=== PATIENT | male | born 1930 | race Caucasian/White ===

== ENCOUNTER 2016-11-15 00:53 | Emergency (ER) | payer MEDICARE ==
[~2016-11-15] VITALS: Ht 170.2 cm; Wt 88.7 kg
[2016-11-15 00:53] VITALS: Ht 170.2 cm; Wt 88.7 kg
[~2016-11-15 00:53] MED LIST: OMEP20TA2 PO; TAMS-1 PO; TRAM50TA53 PO
--- NOTE | 2016-11-15 00:55 | NUR ---
PROVIDER DR JADE IN ROOM TO SEE PT. ADULT SON ALSO IN ROOM
--- OUTSIDE RECORDS SUMMARY | 2016-11-15 00:58 | XMS REPORT | Continuity of Care Document ---
Author Author [facility] Organization [facility] Address Unknown Phone Unavailable Support Name Relationship Address Phone ISAIAH ANDERSON FACS, MD Caregiver [address] [place] [address] [place] [address] Unavailable RITA FELICIANO MD Caregiver [address] [place] [address] [place] [address] Unavailable SAGRARIO OLIVAS Next Of Kin [address] [place] [id number] Insurance Providers Guarantor Jolly Kim Address [address] [place] [address] Email [email or web address] Payer Medicare Policy Number [id number] Subscriber's Name Jolly Kim Relationship 16 Self Advance Directives Directive Response Recorded Date/Time Ordered Resuscitation Status Full Code 05/02/16 3:41pm Resuscitation Documents on File No 05/03/16 10:15am DPOA for Healthcare Only Yes 05/03/16 10:15am Living Will Yes 05/03/16 10:15am Problems No problem information available. Medications Current Home Medications Medication Dose Units Route Directions Days Qty Instructions Start Date Omeprazole Magnesium (Prilosec Otc) 20 Mg Tablet.dr Santamaria Tab Oral Bedtime for Acid Reflux 05/02/16 Tamsulosin Hcl (Flomax) 0.4 Mg Capsule 0.4 Mg Oral Bedtime Take 1 capsule, by mouth, one time a day at BEDTIME. 05/02/16 Tramadol Hcl (Ultram) 50 Mg Tablet 50 Mg Oral Every 4 Hours for Pain 20 Tablet Take 1 tablet, by mouth, every 4 hours. 05/03/16 Social History Social History Problem Response Recorded Date/Time Onset Date Status Reason for Hospitalization EXCISIONAL BIOPSIES OF PERINEAL SUBCUTANOUS MASSES 05/03/2016 1:37pm Not Applicable Not Applicable Chewing Tobacco Status No 05/03/2016 10:12am Not Applicable Not Applicable Hx Substance Use No 05/03/2016 10:12am Not Applicable Not Applicable Hx Alcohol Use No 05/03/2016 10:12am Not Applicable Not Applicable Has the pt used tobacco in the last 12 months No 05/03/2016 10:12am Not Applicable Not Applicable Query Response Start Date Stop Date Smoking Status Never smoker Hospital Discharge Instructions Instructions: Care Instructions: I was in the hospital because (patient own words): HAVE LESIONS REMOVED FROM BUTTOCK AND LEG Discharge Diet: regular Discharge Activity: as tolerated Follow Up Appointments: Follow up with Promise Torres APRN/Dr. Anderson May 15 Pending Lab / Results: Will be notified Expected Signs/Symptoms: tenderness at incision sites, bruising Notify Physician If: 1. Call your surgeon if you are having problems relating to your surgery at [phone]. 2. Problems such as: Temp above 101.5 degrees You develop redness, excessive swelling of the incision, increasing pain or excessive foul smelling drainage. 3. If the office is closed, call [facility] at [phone] and have your Surgeon paged. During Business Hours:: Call your surgeon at at [phone]. After Business Hours:: If the office is closed, call [facility] at [phone] and have your Surgeon paged. Pain Management/Treatment: Follow prescriptions as prescribed Wound/Incision Care: Change dressing as needed. Do not let a wet dressing remain on the incision. Antibiotic ointment to incisions daily. May shower tomorrow, no bath. Condition at time of discharge: Good Plan of Care Discharge Date 05/03/16 2:22pm Instructions/Education Provided [facility] Prescriptions See Medication Section Functional Status Query Response Date Recorded Ability to complete ADL's impeded by No change May 03, 2016 10:15am Allergies, Adverse Reactions, Alerts No known allergies. Immunizations Query Response on File Recorded Date/Time Hx Influenza Vaccination Y MAY 2015 05/03/16 10:12am Hx Pneumococcal Vaccination Yes 05/03/16 10:12am Hx Influenza Vaccination Y MAY 2015 05/03/16 10:12am Vital Signs Acute Vital Signs Vital Response Date/Time Temperature (Fahrenheit) 98.7 deg F (96.8 - 99.1) 05/03/2016 1:09pm Temperature (Calculated Celsius) 37.09520 degrees C (36.0 - 37.3) 05/03/2016 1:09pm Temperature Source Temporal 05/03/2016 1:09pm Pulse Rate (adult) 62 bpm (60 - 100) 05/03/2016 2:20pm Respiratory Rate 20 breaths/min (10 - 20) 05/03/2016 2:20pm O2 Sat by Pulse Oximetry 97 % (90 - 100) 05/03/2016 2:20pm Oxygen Delivery Method Room Air 05/03/2016 2:20pm Blood Pressure 153/67 mm Hg 05/03/2016 2:20pm Blood Pressure Source Automatic Cuff 05/03/2016 2:20pm Height (Feet) 5 feet 05/03/2016 9:40am Height (Inches) 7.00 inches 05/03/2016 9:40am Weight (Kilograms) 87.600 kg 05/03/2016 9:40am Body Mass Index (BMI) 30.3 05/03/2016 9:40am Results No known relevant diagnostic tests, laboratory data and/or discharge summary. Procedures No known history of procedures. Encounters Encounter Location Arrival/Admit Date Discharge/Depart Date Attending Provider Registered [facility] 05/03/16 9:26am ISAIAH ANDERSON FACS, MD
[2016-11-15] MEDS ORDERED: LIDOCAINE JELLY 2% 20ml UROJET MM ONE (01:00)
--- NOTE | 2016-11-15 01:00 | ERPDOC ---
Departure Disposition Decision Date: November 15, 2016 Disposition Decision Time: :16 Disposition: 01 DISCHARGED HOME, SELF-CARE Impression Impression Impression: Primary Impression: Urinary retention Additional Impression: Constipation Constipation type: outlet dysfunction constipation Qualified Codes: K59.02 - Outlet dysfunction constipation Severity: Severe Condition: Improved Seen By: Physician only Referrals: RITA FELICIANO MD (Family) Patient Instructions: Constipation (ED), Malone Catheter Placement and Care (ED) , Urinary Retention in Men (ED) Problems/Meds/Labs Reviewed?: Yes Medications reviewed and manag: Yes Additional Instructions: Call your doctor first thing in the morning to arrange appointment for later today or tomorrow for recheck. Follow up care ordered?: Yes Mental Status: Alert HPI - Male General Stated Complaint: URINATION PROBLEMS Time Seen by Provider: 00:58 Source: patient Exam Limitations: no limitations HPI - Male Initial Comments Patient became constipated today after a long car ride. He tried taking some relax at home without effect, and then tried manual disimpaction which was somewhat effective. However when the patient was on the stool later in the evening, he noticed that he was having severe difficulty urinating, and in fact could not urinate at all. Taking the relax, it appeared that he had produced significant amounts of urine, but was unable to void. Patient does have BPH, that is normally controlled with Flomax. Occurred At: home Onset: Rapid Duration: 12-24 hrs Allergies: Coded Allergies: No Known Allergies (Unverified , 05/02/16) Past History Past Medical History GI: GERD Male: BPH Surgical History General: colonoscopy Vaccines Hx Influenza Vaccination: Yes (MAY 2015) Hx Pneumococcal Vaccination: Yes Social History Smoking Status: Never smoker Does patient use chewing tobac: No Second Hand Exposure: No Substance Use Type: does not use Record Review Pertinent history updated: Yes Physical Exam General Vitals and Pain First Documented Vital Signs Date Time Temp Pulse Resp B/P Pulse Ox O2 Delivery O2 Flow Rate FiO2 11/15/16 00:53 97.6 86 20 226/99 97 Room Air Weight: Kilograms: Height (feet): 5 Height (inches): 7.00 Triage Pain Scale: Progress Results/Orders Orders Procedure Category Date Status Time Malone (Ed) EDM 11/15/16 Transmitted 01:00 Catheter Needs BRENT 11/15/16 In Process Assessment 01:00 Bladder Scanner (Ed) EDM 11/15/16 Transmitted 01:00 Lidocaine Urojet PHA 11/15/16 Complete (Urojet) 01:00 Bisacodyl Supp. PHA 11/15/16 Complete (Dulcolax) 01:15 Magnesium Citrate PHA 11/15/16 Complete (Citrate Of Magnesia) 01:15 UA, LAB 11/15/16 Complete Dip&Micro(Complete) & 01:23 Lab Results Laboratory Tests Test 11/15/16 01:23 Urine Collection Type Straight cath Urine Color Yellow Urine Turbidity Clear Urine pH 6.5 Urine Specific [place] 1.015 Urine Protein Negative Urine Glucose (UA) Trace Urine Ketones Negative Urine Blood 2+ Urine Nitrite Negative Urine Bilirubin Negative Urine Urobilinogen 0.2EU/DL Urine Leukocyte Esterase Negative Urine RBC 5-10/HPF Urine WBC None seen/HPF Urine Bacteria None seen Urine Culture Indicated Cult not indicated Medications Current ED Medications Lidocaine HCl (Urojet) 20 ml O ONCE MM ; Start 11/15/16 at 01:00; Stop 11/15/16 at 01:02; Status DC Bisacodyl (Dulcolax) 10 mg O ONCE RECTALLY Last administered on 11/15/16 01:30 ; Start 11/15/16 at 01:15; Stop 11/15/16 at 01:16; Status DC Magnesium Citrate (Citrate Of Magnesia) 296 ml O ONCE PO Last administered on 11/15/16 01:50; Start 11/15/16 at 01:15; Stop 11/15/16 at 01:16; Status DC Progress Progress Urinalysis after Malone catheter placement and complete evacuation of the bladder shows only small amount of red blood cells. Patient was given Dulcolax suppository and magnesium citrate liquid to help mobilize stool, and dismissed home with Malone catheter in place. MADISON JADE MD November 15, 2016 01:00
[2016-11-15] MEDS ORDERED: BISACODYL 10 MG SUPPOSITORY RECTALLY ONE (01:15)
[2016-11-15] MEDS ORDERED: MAGNESIUM CITRATE 296 ML SOLUTION PO ONE (01:15)
--- NOTE | 2016-11-15 01:23 | NUR ---
UA COLLECTED VIA VAZQUEZ CATH W/ APPROX 800 CC URINE OUTPUT.
--- NOTE | 2016-11-15 01:30 | NUR ---
RECTAL DUCOLAX SUPPOSITORY GIVEN CHARTED.
--- NOTE | 2016-11-15 01:50 | NUR ---
PO MEDS MAGNESIUM CITRATE CHARTED W/ PT TOLERANCE.
[2016-11-15 02:07] LABS: BLOOD, URINE 2+ (NEGATIVE); COLOR,URINE YELLOW (YELLOW); LEUKOCYTE ESTERASE ,URINE NEGATIVE (NEGATIVE); NITRITE,URINE NEGATIVE (NEGATIVE); UROBILINOGEN,URINE 0.2 EU/DL (NORMAL)
[2016-11-15 02:13] LABS: BACTERIA,URINE NONE SEEN (NEGATIVE); WBC,URINE NONE SEEN /HPF (0-5)
[2016-11-15 02:31] VITALS: BP 159/77; PULSE 83; RESP 20; TEMP 97.2; O2SAT 97
--- NOTE | 2016-11-15 02:31 | NUR ---
DISCHARGE PT GIVEN INSTRUCTIONS FOR CONT CARE OF URINARY RETENTION W/ VAZQUEZ PLACEMENT. PT VERBALIZED UNDERSTANDING OF CONTENT AND SIGNED FORM. PT LEFT ER AMBULATORY AT SCENE ALERT, VS CHARTED AND IN NO ACUTE DISTRESS.
== END 2016-11-15 02:31 | disposition home or self-care (01) ==
LOC: ED 00:53
DX: N40.1 Benign prostatic hyperplasia with lower urinary tract symptoms (principal); R33.8 Other retention of urine; K59.02 Outlet dysfunction constipation
CPT/HCPCS: 51702; 81001; 99283; A9270